=== PATIENT | female | born 1985 | race Caucasian/White ===

== ENCOUNTER → 2023-02-25 | Outpatient (REF) ==
[2023-02-25 17:57] LABS: RSV AMPLIFICATION NEGATIVE (NEGATIVE)
== END ==
LOC: M EMP 16:01
PROVIDERS: ATTEND Family Medicine
DX: Z20.822 Contact with and (suspected) exposure to COVID-19 (principal)

== ENCOUNTER → 2023-10-18 | Outpatient (REF) | LOC: M EMP 10:10 | PROVIDERS: ATTEND Family Medicine | DX: Z11.52 Encounter for screening for COVID-19 (principal) ==

== ENCOUNTER → 2024-06-23 | Outpatient (REF) | LOC: M EMP 14:27 | PROVIDERS: ATTEND Family Medicine | DX: R09.89 Other specified symptoms and signs involving the circulatory and respiratory systems (principal) ==

== ENCOUNTER → 2024-07-20 | Outpatient (REF) ==
[2024-07-21 08:09] LABS: RSV AMPLIFICATION NEGATIVE (NEGATIVE)
== END ==
LOC: M EMP 15:23
PROVIDERS: ATTEND Family Medicine
DX: Z11.52 Encounter for screening for COVID-19 (principal)

== ENCOUNTER → 2024-07-21 | Outpatient (REF) | LOC: M EMP 07:26 | PROVIDERS: ATTEND Family Medicine | DX: Z53.20 Procedure and treatment not carried out because of patient's decision for unspecified reasons (principal) ==

== ENCOUNTER → 2025-05-12 | Outpatient (CLI) | payer BC | LOC: M WHC 10:35 | PROVIDERS: ATTEND Internal Medicine | DX: Z12.31 Encounter for screening mammogram for malignant neoplasm of breast (principal); R92.323 Mammographic fibroglandular density, bilateral breasts ==

== ENCOUNTER 2025-08-06 19:21 | Emergency (ER) | payer OTHER, BC ==
[~2025-08-06] VITALS: Ht 152.4 cm; Wt 75.2 kg
[2025-08-06] MEDS ORDERED: KETOROLAC 60 MG/2 ML VIAL IM ONE (22:15)
[2025-08-06] MEDS ORDERED: METHOCARBAMOL 1,000 MG/10 ML VIAL IM ONE (22:15)
[2025-08-06] MEDS: METHOCARBAMOL 1,000 MG/10 ML VIAL IV ONE (23:03)
[2025-08-06] MEDS: KETOROLAC 30 MG/ML 1 ML VIAL IV ONE (23:03)
[2025-08-07] MEDS ORDERED: HYDR-3713 PO (01:04)
[2025-08-07] MEDS: NORCO 5/325MG TABLET (HOME DOSE PACK) PO ONE (01:21)
[2025-08-07 01:29] VITALS: BP 133/88; TEMP 97.2; O2SAT 99
== END 2025-08-07 01:32 | disposition home or self-care (01) ==
LOC: M ED 19:21
DX: G56.02 Carpal tunnel syndrome, left upper limb (principal)
CPT/HCPCS: 70490; 73060; 73090; 73130; 96374; 96375; 99284; J1885; J2800

== ENCOUNTER → 2025-08-12 | Outpatient (CLI) | payer BC ==
[~2025-08-12] MED LIST: HYDR-3713 PO; ISOVUE-370 76% 100 ML VIAL As Ordered ONE
== END ==
LOC: M RAD 13:04
PROVIDERS: ATTEND Internal Medicine
DX: R10.84 Generalized abdominal pain (principal)

== ENCOUNTER 2025-08-25 09:36 | Day surgery (SDC) | payer BC ==
[~2025-08-25] VITALS: Ht 152.4 cm; Wt 73.9 kg
[~2025-08-25 09:36] MED LIST changes: -ISOVUE-370 76% 100 ML VIAL As Ordered ONE
[2025-08-25] MEDS ORDERED: GABA-1171 PO (09:52)
[2025-08-25] MEDS ORDERED: PANT20TA6 PO (09:52)
[2025-08-25 10:54] VITALS: TEMP 98.1
[2025-08-25 11:18] VITALS: BP 152/87; O2SAT 100
== END 2025-08-25 11:33 | disposition home or self-care (01) ==
LOC: M OPP 09:36
PROVIDERS: ATTEND Internal Medicine Gastroenterology
DX: K64.0 First degree hemorrhoids (principal); K57.30 Diverticulosis of large intestine without perforation or abscess without bleeding; R10.12 Left upper quadrant pain; F17.290 Nicotine dependence, other tobacco product, uncomplicated